=== PATIENT | female | born 1940 | race Caucasian/White ===

== ENCOUNTER 2019-02-14 06:58 | Emergency (ER) | payer MEDICARE, BC ==
[2019-02-14] MEDS ORDERED: KETOROLAC 60 MG/2 ML VIAL IM STA (07:34)
--- NOTE | 2019-02-14 07:38 | ED Physician Documentation ---
PD HPI Fall - Stated complaint Stated Complaint: LT LOWER BACK PX - Chief complaint Chief Complaint: Back Pain - History obtained from History obtained from: Patient, Family - History of Present Illness Mechanism of injury: Lost balance Fall distance: Standing position, Less than 5ft, Other (from coutner height) Where injury occurred: Home Timing - onset: How many days ago (2) Injury(ies) location: Back Quality of pain: Pain Associated symptoms: No: LOC, AMS, Amnesia, Seizures, Ear drainage, Nasal drainage, Neck pain Symptoms improve with: Rest, Ice, Meds Worsens with: Movement, Palpation Contributing factors: No: Anticoagulated, Intoxicated Similar symptoms before: Has not had sx before Recently seen: Not recently seen - Additional information Additional information: Previously healthy 78-year-old female with history of hypertension was on a countertop 2 days ago when she fell onto her back. She has pain on the left side of her back below her scapula to direct palpation and any movement or breathing. She states this is now limiting what she can do. She is having a hard time standing up sitting down and moving around. If she is very still she can be comfortable. She has tried some muscle relaxant and some ibuprofen. She had some mixed improvement with that. Review of Systems Constitutional: denies: Fever Eyes: denies: Decreased vision Nose: denies: Congestion Throat: denies: Sore throat Cardiac: reports: Chest pain / pressure. denies: Palpitations, Pedal edema, Calf pain Respiratory: denies: Dyspnea, Cough GI: denies: Abdominal Pain, Nausea, Vomiting : denies: Dysuria, Frequency Skin: denies: Rash Musculoskeletal: reports: Back pain. denies: Neck pain, Extremity pain Neurologic: denies: Generalized weakness, Focal weakness PD PAST MEDICAL HISTORY - Present Medications Home Medications: Ambulatory Orders Medication Instructions Recorded Confirmed Hydrocodone/Acetaminophen 1 - 2 each PO Q6H PRN #30 tablet 02/14/19 [Hydrocodon-Acetaminophen 5-325] - Allergies Allergies/Adverse Reactions: Allergies Allergy/AdvReac Type Severity Reaction Status Date / Time No Known Drug Allergies Allergy Verified 02/14/19 07:12 PD ED PE NORMAL - Vitals Vital signs reviewed: Yes (hypertensive mild ) - General General: Alert and oriented X 3, Well developed/nourished, Other (moves slowly and breaths shallow ) - HEENT HEENT: Atraumatic, PERRL, EOMI - Neck Neck: Supple, no meningeal sign, No bony TTP - Cardiac Cardiac: RRR, No murmur - Respiratory Respiratory: No respiratory distress, Clear bilaterally, Other (tender specifically to the ribs posteriorly over the 8th and 9th ribs to the mid scaplular line. ) - Abdomen Abdomen: Soft, Non tender - Back Back: No CVA TTP, No spinal TTP - Derm Derm: Normal color, Warm and dry, No rash - Extremities Extremities: No deformity, No edema, No calf tenderness / cord - Neuro Neuro: Alert and oriented X 3, disability hearing officer 2-12 intact, No motor deficit, No sensory deficit, Normal speech Eye Opening: Spontaneous Motor: Obeys Commands Verbal: Oriented GCS Score: 15 - Psych Psych: Normal mood, Normal affect Results - Vitals Vitals: Vital Signs - 24 hr 02/14/19 02/14/19 02/14/19 07:02 09:41 11:58 Temperature 37.2 C Heart Rate 71 51 L 57 L Respiratory 18 16 18 Rate Blood Pressure 143/84 H 153/96 H 144/91 H O2 Saturation 97 98 99 Oxygen O2 Source Room air - Labs Labs: Laboratory Tests 02/14/19 02/14/19 02/14/19 09:38 09:38 09:38 WBC 6.6 RBC 4.02 L Hgb 12.9 Hct 38.4 MCV 95.6 MCH 32.1 H MCHC 33.5 RDW 12.8 Plt Count 181 MPV 7.7 L Neut # (Auto) 4.4 Lymph # (Auto) 1.7 [place] # (Auto) 0.5 Eos # (Auto) 0.1 Baso # (Auto) 0.0 Absolute Nucleated RBC 0.00 Nucleated RBC % 0.0 Sodium 139 Potassium 3.9 Chloride 103 Carbon Dioxide 26 Anion Gap 10.0 BUN 13 Creatinine 0.8 Estimated GFR (MDRD) 70 L Glucose 104 H Calcium 9.5 Total Bilirubin 1.0 AST 22 ALT 22 Alkaline Phosphatase 42 Troponin I < 0.04 Total Protein 7.2 Albumin 4.3 Globulin 2.9 Albumin/Globulin Ratio 1.5 Lipase 24 - Rads (name of study) CT abd/pel with Radiology: Prelim report reviewed (Impression: No visceral organ injury. No free fluid in the abdomen.), EMP read indepedently, See rad report CT chest with Radiology: Prelim report reviewed (Impression: left fifth through ninth rib fracture. Possible trace left pneumothorax. Left basilar atelectasis. Small left effusion.), EMP read indepedently, See rad report ribs with PA chest Radiology: Prelim report reviewed (Impression: 1. Acute minimally displaced fractures of the posterior lateral left fifth and sixth ribs. Acute nondisplaced fractures of the posterior lateral left seventh through ninth ribs 2. no pneumothorax lungs are clear.), EMP read indepedently, See rad report Procedures - Bedside sono Bedside sono by EMP: With use of bedside ultrasound the left kidney is imaged there is a thin rim of fluid superiorly there is no obvious deformity to the spleen which is otherwise homogeneous. PD MEDICAL DECISION MAKING - ED course Complexity details: reviewed results, re-evaluated patient, considered differential, d/w patient, d/w family, d/w data integrity consultant ([place]get[place]: 2 days out from fractures does not require "automatic" admit to CCU. Recommends pain control and imaging of spleen with FAST) ED course: 78-year-old female who is fallen from a counter height onto her back is fractured 5 ribs. She comes to the emergency department 2 and half days after the fall and she is having a hard time getting in and out of bed she is not able to lay flat she has not had adequate relief of the pain with ibuprofen and Aleve. She does not have obvious hemopneumothorax on her plain film of the chest. Dr. Baumann is consulted in the case and recommends a FAST exam for examination of the spleen and on this exam there is a trace free fluid above the left kidney and a CT abdomen pelvis and chest are obtained for further evaluation. There is no abnormality of the spleen. The imaging studies show the extent of the injury including a small effusion some subcutaneous air scant amount and I am not able to see the possible pneumothorax that is discussed. The patient has improvement with use of oral narcotic in the form of hydrocodone and I discussed with the patient the need for regular deep breathing and for adequate pain control. She will reduce her level of activity she is able to get in and out of bed at this time without assistance. I did discuss with the patient admission to the hospital and she would prefer not to have to come into the hospital. With shared decision making she will attempt treatment as an outpatient. Departure - Departure Disposition: Home, Self Care Clinical Impression: Ribs, multiple fractures Instructions: ED Fx Rib Follow-Up: CAREN DRAPER MD [Primary Care Provider] - Prescriptions: Hydrocodone/Acetaminophen [Hydrocodon-Acetaminophen 5-325] 1 - 2 each PO Q6H PRN #30 tablet PRN Reason: pain Discharge Date/Time: 02/14/19 12:30
--- NOTE | 2019-02-14 08:02 | XRAY Report ---
Reason: fall left posterior lower chest wall pain Procedure Date: 02/14/2019 Accession Number: [id number] / [id number] Procedure: XR - Ribs w/PA Chest LT CPT Code: FULL RESULT: EXAM: LEFT RIB RADIOGRAPHY EXAM DATE: 02/14/2019 07:52 AM. CLINICAL HISTORY: Fall left posterior lower chest wall pain. COMPARISON: None. TECHNIQUE: 1 view of the chest and 2 views of the ribs. FINDINGS: Bones: There are acute minimally displaced fractures of the posterior lateral left fifth and sixth ribs. There are acute nondisplaced fractures of the posterior lateral left seventh (probable), eighth, ninth ribs. A marker is placed over the lateral left ninth rib. Lungs: No focal opacities. No pneumothorax. No pleural effusions. Mediastinum: Heart and mediastinal contours are unremarkable. Other: None. IMPRESSION: 1. Acute minimally displaced fractures of the posterior lateral left fifth and sixth ribs. Acute nondisplaced fractures of the posterolateral left seventh through ninth ribs. 2. No pneumothorax. Lungs are clear. RADIA
[2019-02-14] MEDS ORDERED: HYDROcod/ACETAM 5/325 MG TABLET PO STA (08:41)
[2019-02-14] MEDS ORDERED: IOVERSOL 320 100 ML VIAL IVP ONE ×2 (09:09→10:23)
[2019-02-14 09:48] LABS: BASOPHILS % (AUTO) 0.5 %; EOSINOPHILS # (AUTO) 0.1 10^3/uL (0.0-0.7); EOSINOPHILS % (AUTO) 1.2 %; HGB - HEMOGLOBIN 12.9 g/dL (12.0-16.0); LYMPHOCYTES # (AUTO) 1.7 10^3/uL (1.5-3.5); LYMPHOCYTES % (AUTO) 25.1 %; MEAN CORPUSCULAR HEMOGLOBIN 32.1 pg (27.0-31.0); MEAN CORPUSCULAR HGB CONC 33.5 g/dL (32.0-36.0); MEAN CORPUSCULAR VOLUME 95.6 fL (81.0-99.0); MEAN PLATELET VOLUME 7.7 fL (7.9-10.8); MONOCYTES # (AUTO) 0.5 10^3/uL (0.0-1.0); MONOCYTES % (AUTO) 7.7 %; NEUTROPHILS # (AUTO) 4.4 10^3/uL (1.5-6.6); NEUTROPHILS % (AUTO) 65.5 %; PLT - PLATELET COUNT 181 10^3/uL (130-450); RED BLOOD COUNT 4.02 10^6/uL (4.20-5.40); RED CELL DISTRIBUTION WIDTH 12.8 % (12.0-15.0); WHITE BLOOD COUNT 6.6 x10^3/uL (4.8-10.8)
[2019-02-14 09:59] LABS: ALBUMIN 4.3 g/dL (3.2-5.5); ALBUMIN/GLOBULIN RATIO 1.5 (1.0-2.2); CALCIUM 9.5 mg/dL (8.5-10.3); CREATININE 0.8 mg/dL (0.4-1.0); TOTAL PROTEIN 7.2 g/dL (6.7-8.2)
--- NOTE | 2019-02-14 11:08 | CT Report ---
Reason: fall multiple rib fx ? rim of fluid on spleen Procedure Date: 02/14/2019 Accession Number: [id number] / [id number] Procedure: CT - Abdomen/Pelvis W CPT Code: FULL RESULT: EXAM: CT ABDOMEN AND PELVIS EXAM DATE: 02/14/2019 10:26 AM. CLINICAL HISTORY: Fall multiple rib fx ? rim of fluid on spleen. COMPARISONS: None. TECHNIQUE: Routine helical CT imaging was performed through the abdomen and pelvis. IV contrast: OPTI 320 80 ML. Enteric contrast: No. Reconstructions: Coronal and sagittal. In accordance with CT protocol optimization, one or more of the following dose reduction techniques were utilized for this exam: automated exposure control, adjustment of mA and/or KV based on patient size, or use of iterative reconstructive technique. FINDINGS: Liver: Fatty infiltrated Gallbladder/Bile Ducts: Unremarkable. Spleen: Normal. Pancreas: Normal. Adrenal Glands: Normal. Kidneys: Right kidney unremarkable. Left kidney subcentimeter density inferior pole too small to characterize. Peritoneal Cavity/Bowel: Normal. No free fluid, free air or adenopathy. No masses or acute inflammatory process. Pelvic Organs: Normal. The bladder and visualized pelvic organs are within normal limits. Vasculature: No aneurysms or other significant abnormality. Bones: DJD spine. Other: None. IMPRESSION: No visceral organ injury. No free fluid in the abdomen. RADIA
--- NOTE | 2019-02-14 11:09 | CT Report ---
Reason: fall multiple rib fx Procedure Date: 02/14/2019 Accession Number: [id number] / [id number] Procedure: CT - CHEST W CPT Code: FULL RESULT: EXAM: CT CHEST EXAM DATE: 02/14/2019 10:26 AM. CLINICAL HISTORY: Fall multiple rib fx. COMPARISONS: None. TECHNIQUE: Routine helical CT imaging was performed through the chest. IV contrast: None. Reconstructions: Coronal and sagittal. In accordance with CT protocol optimization, one or more of the following dose reduction techniques were utilized for this exam: automated exposure control, adjustment of mA and/or KV based on patient size, or use of iterative reconstructive technique. FINDINGS: Lungs/Pleura: Minimal right basilar atelectasis. Left basilar atelectasis. Small left effusion. Possible trace left pneumothorax Pulmonary vasculature is normal. No pericardial effusion. Mediastinum: Normal. No adenopathy or masses. The heart and great vessels are normal. Bones: Left fifth, sixth, seventh, eighth and ninth rib fracture. Mild wedging mid thoracic vertebral bodies. Other: Subcentimeter densities in the thyroid gland bilaterally Subcutaneous emphysema left chest IMPRESSION: 1. Left fifth through ninth rib fracture. 2. Possible trace left pneumothorax. Left basilar atelectasis. Small left effusion. RADIA
[2019-02-14 11:59] VITALS: BP 144/91
== END 2019-02-14 12:30 | disposition home or self-care (01) ==
LOC: ED 06:58
DX: S22.42XA Multiple fractures of ribs, left side, initial encounter for closed fracture (principal); W17.89XA Other fall from one level to another, initial encounter; Y92.009 Unspecified place in unspecified non-institutional (private) residence as the place of occurrence of the external cause
CPT/HCPCS: 36415; 71101; 71260; 74177; 80053; 83690; 84484; 85025; 96372; 99283; 99284; A9270; Q9967

== ENCOUNTER 2019-02-17 04:46 | Outpatient (CLI) | payer MEDICARE, BC | END 2019-02-17 04:47 | disposition EMS.NT | LOC: EMS 04:46 | PROVIDERS: ATTEND Surgery | DX: R07.81 Pleurodynia (principal) ==

== ENCOUNTER 2019-02-17 05:53 | Emergency (ER) | payer MEDICARE, BC ==
--- NOTE | 2019-02-17 06:16 | ED Physician Documentation ---
History of Present Illness - Stated complaint Stated Complaint: RIB PX - Chief complaint Chief Complaint: General - History obtained from History obtained from: Patient - Additonal information Additional information: Patient is a 78-year-old female presenting with persistent left-sided rib pain and muscle spasm. Patient was originally injured and seen in the ED several days ago on 02/14/2019. At that time it was determined that she had left-sided fifth through ninth rib fractures and was sent home with pain medications, as well as an incentive spirometer. Patient reports that she is still experiencing pain but mostly is concerned about significant muscle spasm. No new injuries or falls. Patient denies new productive cough, fever, or other concerns. Patient is to follow-up with her primary care physician later this week. No other improving or worsening factors noted. Review of Systems Cardiac: reports: Other (rib pain on left) Respiratory: denies: Dyspnea, Cough PD PAST MEDICAL HISTORY - Past Medical History Cardiovascular: Hypertension, High cholesterol - Present Medications Home Medications: Ambulatory Orders Medication Instructions Recorded Confirmed Hydrocodone/Acetaminophen 1 - 2 each PO Q6H PRN #30 tablet 02/14/19 [Hydrocodon-Acetaminophen 5-325] diazePAM [Valium] 2 mg PO TID PRN #15 tablet 02/17/19 - Allergies Allergies/Adverse Reactions: Allergies Allergy/AdvReac Type Severity Reaction Status Date / Time No Known Drug Allergies Allergy Verified 02/14/19 07:12 - Social History Does the pt smoke?: No Smoking Status: Never smoker Does the pt drink ETOH?: Yes Does the pt have substance abuse?: No - POLST Patient has POLST: No PD ED PE NORMAL - Vitals Vital signs reviewed: Yes - General General: Alert and oriented X 3, No acute distress, Well developed/nourished - HEENT HEENT: Atraumatic - Cardiac Cardiac: RRR, No murmur, Other (Moderate rib pain to left mid axillary and left lower posterior ribs) - Respiratory Respiratory: No respiratory distress, Clear bilaterally - Derm Derm: Normal color, Warm and dry - Extremities Extremities: No deformity, No tenderness to palpate - Neuro Neuro: Alert and oriented X 3, No motor deficit, No sensory deficit - Psych Psych: Normal mood, Normal affect Results - Vitals Vitals: Vital Signs - 24 hr 02/17/19 06:00 Temperature 36.7 C Heart Rate 60 Respiratory 20 Rate Blood Pressure 143/85 H O2 Saturation 97 Oxygen O2 Source Room air PD MEDICAL DECISION MAKING - ED course Complexity details: reviewed old records, considered differential, d/w patient, d/w family ED course: Patient has known injuries of left-sided fifth through ninth rib fractures from fall several days ago. No new injuries or trauma. Do not feel patient requires new imaging or invasive testing at this time. Patient still has pain medications available to her at home and has primary care physician follow-up later this week during which she can obtain refills. However, she is complained today mostly of muscle spasm and feel that providing a muscle relaxant will be an appropriate addition to her pain regimen. Had lengthy discussions with patient regarding use of medications, accommodation of medications with narcotics, other supportive cares, and return precautions. Also emphasized need for primary care follow-up as scheduled. Patient and voiced understanding and are comfortable with discharge plan. Departure - Departure Disposition: 01 Home, Self Care Clinical Impression: Ribs, multiple fractures Qualifiers: Encounter type: subsequent encounter Fracture type: closed Laterality: left Fr acture healing: with routine healing Qualified Code(s): S22.42XD - Multiple fractures of ribs, left side, subsequent encounter for fracture with routine healing Condition: Good Instructions: ED Fx Rib Follow-Up: CAREN DRAPER MD [Primary Care Provider] - Within 3 Days Prescriptions: diazePAM [Valium] 2 mg PO TID PRN #15 tablet PRN Reason: Spasms Comments: May continue use of [place] at home as previously instructed. Recommend use of stool softener or laxative if taking this regularly to avoid constipation. Please use Valium as prescribed for relief of muscle spasm. Please do not combine medications with alcohol or driving. Also recommend stretching, massage, and heat application. Please follow-up with primary care physician in next 2 to 3 days and return to ED sooner if experience worsening symptoms or other concerns.
[2019-02-17] MEDS ORDERED: diazePAM 5 MG TABLET PO STA ×2 (06:26→06:34)
--- NOTE | 2019-02-17 07:10 | ED Physician Documentation ---
History of Present Illness - Stated complaint Stated Complaint: RIB PX - Chief complaint Chief Complaint: General - Additonal information Additional information: 78 y/o female returns to the ED with severe spasms of pain at 0300 on day #5 fr om rib injury. 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 - Present Medications Home Medications: Ambulatory Orders Medication Instructions Recorded Confirmed Hydrocodone/Acetaminophen 1 - 2 each PO Q6H PRN #30 tablet 02/14/19 [Hydrocodon-Acetaminophen 5-325] Hydrocodone/Acetaminophen 1 - 2 each PO Q6H PRN #14 tablet 02/17/19 [Hydrocodon-Acetaminophen 5-325] Ondansetron Odt [Zofran] 4 mg TL Q6H PRN #10 tablet 02/17/19 diazePAM [Valium] 2 mg PO TID PRN #15 tablet 02/17/19 - Allergies Allergies/Adverse Reactions: Allergies Allergy/AdvReac Type Severity Reaction Status Date / Time No Known Drug Allergies Allergy Verified 02/14/19 07:12 - Social History Does the pt smoke?: No Smoking Status: Never smoker Does the pt drink ETOH?: Yes Does the pt have substance abuse?: No - POLST Patient has POLST: No PD ED PE NORMAL - Vitals Vital signs reviewed: Yes (hypertensive ) - General General: Alert and oriented X 3, No acute distress, Well developed/nourished - HEENT HEENT: Atraumatic, PERRL, EOMI - Respiratory Respiratory: No respiratory distress, Clear bilaterally, Other (diminished breath sounds in left base. No rhonchi or wheezing ) - Derm Derm: Normal color, Warm and dry, No rash - Extremities Extremities: No deformity, No edema - Neuro Neuro: Alert and oriented X 3, upstairs maid 2-12 intact, No motor deficit, No sensory deficit, Normal speech Eye Opening: Spontaneous Motor: Obeys Commands Verbal: Oriented GCS Score: 15 - Psych Psych: Normal mood, Normal affect Results - Vitals Vitals: Vital Signs - 24 hr 02/17/19 02/17/19 06:00 07:17 Temperature 36.7 C 36.6 C Heart Rate 60 62 Respiratory 20 16 Rate Blood Pressure 143/85 H 136/76 H O2 Saturation 97 99 Oxygen O2 Source Room air PD MEDICAL DECISION MAKING - ED course Complexity details: considered differential, d/w patient, d/w family ED course: 78y/o female with broken 5 ribs is on Day #5 with increased pain and spasms. She has about 10 pain pills left, she lives in [place] and has an appointment to see her primary at the end of the week. She is having some nausea with the pain medication. She is given additional scripts for zofran and hydrocodone. And she is administered PO decadron Departure - Departure Disposition: 01 Home, Self Care Clinical Impression: Ribs, multiple fractures Qualifiers: Encounter type: subsequent encounter Fracture type: closed Laterality: left Fracture healing: with routine healing Qualified Code(s): S22.42XD - Multiple fractures of ribs, left side, subsequent encounter for fracture with routine healing Condition: Good Instructions: ED Fx Rib Follow-Up: CAREN DRAPER MD [Primary Care Provider] - Within 3 Days Prescriptions: diazePAM [Valium] 2 mg PO TID PRN #15 tablet PRN Reason: Spasms Hydrocodone/Acetaminophen [Hydrocodon-Acetaminophen 5-325] 1 - 2 each PO Q6H PRN #14 tablet PRN Reason: pain Ondansetron Odt [Zofran] 4 mg TL Q6H PRN #10 tablet PRN Reason: Nausea / Vomiting Comments: May continue use of [place] at home as previously instructed. Recommend use of stool softener or laxative if taking this regularly to avoid constipation. Please use Valium as prescribed for relief of muscle spasm. Please do not combine medications with alcohol or driving. Also recommend stretching, massage, and heat application. Please follow-up with primary care physician in next 2 to 3 days and return to ED sooner if experience worsening symptoms or other concerns.
[2019-02-17 07:18] VITALS: BP 136/76
[2019-02-17] MEDS ORDERED: CHERRY SYRUP 10 ML UDC PO ONE (07:55)
[2019-02-17] MEDS ORDERED: DEXAMETHASONE 10 MG/ML VIAL PO STA (07:55)
== END 2019-02-17 08:23 | disposition home or self-care (01) ==
LOC: ED 05:53
DX: M62.838 Other muscle spasm (principal); S22.42XA Multiple fractures of ribs, left side, initial encounter for closed fracture; W19.XXXA Unspecified fall, initial encounter; I10 Essential (primary) hypertension
CPT/HCPCS: 99283; A9270

== ENCOUNTER 2021-03-08 08:00 | Outpatient (CLI) | payer MEDICARE, BC | END 2021-03-08 23:59 | disposition home or self-care (01) | LOC: LAB.S 08:00 | PROVIDERS: ATTEND Physician Assistant | DX: N39.0 Urinary tract infection, site not specified (principal) | CPT/HCPCS: 87086; 87181 ==

== ENCOUNTER 2021-04-30 17:27 | Emergency (ER) | payer MEDICARE, OTHER ==
--- NOTE | 2021-04-30 18:41 | ED Physician Documentation ---
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 - Present Medications Home Medications: Ambulatory Orders Medication Instructions Recorded Confirmed HYDROcod/ACETAM 5/325 [[place] 5/325] 1 ea PO Q6H PRN #15 tablet 04/30/21 Pravastatin [Pravachol] 20 mg PO HS 04/30/21 04/30/21 Spironolactone [Aldactone] 25 mg PO DAILY 04/30/21 04/30/21 - Allergies Allergies/Adverse Reactions: Allergies Allergy/AdvReac Type Severity Reaction Status Date / Time No Known Drug Allergies Allergy Verified 02/14/19 07:12 - Social History Does the pt smoke?: No Smoking Status: Never smoker Does the pt drink ETOH?: Yes Does the pt have substance abuse?: No - POLST Patient has POLST: No PD ED PE NORMAL - Vitals Vital signs reviewed: Yes - General General: Alert and oriented X 3, Well developed/nourished, Other (appears uncomfortable and is guarding ROM of the left wrist. Alert and conversant. ) - HEENT HEENT: Atraumatic - Derm Derm: Normal color, Warm and dry - Extremities Extremities: Other (left distal forearm with swelling mainly dorsal radial side. No obvious angulation. Good pulses at wrist, cap refill and sesnation distally. ) - Neuro Neuro: Alert and oriented X 3, No motor deficit, No sensory deficit, Normal speech Results - Vitals Vitals: Vital Signs - 24 hr 04/30/21 04/30/21 18:04 19:34 Temperature 36.7 C 36.7 C Heart Rate 78 78 Respiratory 18 16 Rate Blood Pressure 128/69 135/84 H O2 Saturation 100 98 Oxygen O2 Source Room air - Rads (name of study) left wrist Radiology: Prelim report reviewed, EMP read contemporaneously (colles fracture comminuted intraarticular with mild dorsal angulation. ), See rad report Procedures - Splint (location) left wrist Splint applied by: Tech Type of splint: Fiberglass, Sugar tong Other: Patient tolerated well, No complications, Neurovascular intact, Sling provided PD MEDICAL DECISION MAKING - ED course Complexity details: reviewed results, re-evaluated patient, considered differential (she states their PMD is a group practice on [facility] so will follow up with Ortho referral from that group. Given disc of images. [facility] local in case. ), d/w patient Departure - Departure Disposition: 01 Home, Self Care Clinical Impression: Accidental fall Qualifiers: Encounter type: initial encounter Qualified Code(s): W19.XXXA - Unspecified fall, initial encounter Colles' fracture of left radius Qualifiers: Encounter type: initial encounter Fracture type: closed Qualified Code(s): S52.532A - Colles' fracture of left radius, initial encounter for closed fracture Condition: Stable Record reviewed to determine appropriate education?: Yes Instructions: ED Fx Colles Wrist No Redu Requ Follow-Up: Roger Gore MD [Provider Admit Priv/Credential] - Prescriptions: HYDROcod/ACETAM 5/325 [[place] 5/325] 1 ea PO Q6H PRN #15 tablet PRN Reason: Pain Comments: Keep the splint on and use the sling to help elevate and rest the wrist. Elevate and ice it often to reduce swelling. Use anti-inflammatory such as ibuprofen or naproxen 2-3 times daily. To that add Tylenol every 4 hours if needed for pain. Alternatively you could use hydrocodone if needed for worse pain in the short-term. This typically is needed mainly in the first few days after the injury. Follow-up with orthopedics. Call on Sunday for an appointment for the end of the week or early next week. This is the best timeframe for the swelling to go down and to be reevaluated for further treatment. Discharge Date/Time: 04/30/21 19:43
--- NOTE | 2021-04-30 18:55 | XRAY Report ---
PROCEDURE: Wrist 3 View LT INDICATIONS: fall with wrist injury TECHNIQUE: 3 views of the wrist were acquired. COMPARISON: None FINDINGS: Bones: Comminuted fracture of the distal radius is noted which extends into the radiocarpal joint. Di splaced fracture involving the ulnar styloid process. Soft tissues: TFCC chondrocalcinosis. IMPRESSION: 1. Comminuted, intra-articular distal radius fracture. 2. Displaced ulnar styloid process fracture. Reviewed by: Jeanne Schulz MD, PhD on 04/30/2021 6:54 PM PDT Approved by: Jeanne Schulz MD, PhD on 04/30/2021 6:54 PM PDT Station ID: [id number]
[2021-04-30] MEDS ORDERED: HYDROcod/ACETAM 5/325 MG TABLET PO STA (19:06)
[2021-04-30] MEDS ORDERED: IBUPROFEN 600 MG TABLET PO STA (19:06)
[2021-04-30 19:42] VITALS: BP 135/84
== END 2021-04-30 19:43 | disposition home or self-care (01) ==
LOC: ED 17:27
DX: S52.532A Colles' fracture of left radius, initial encounter for closed fracture (principal); W01.198A Fall on same level from slipping, tripping and stumbling with subsequent striking against other object, initial encounter; Y92.410 Unspecified street and highway as the place of occurrence of the external cause; I10 Essential (primary) hypertension
CPT/HCPCS: 29125; 73110; 99283; 99284; A9270

== ENCOUNTER 2021-06-13 08:00 | Outpatient (CLI) | payer MEDICARE, OTHER | END 2021-06-13 23:59 | disposition home or self-care (01) | LOC: LAB.S 08:00 | PROVIDERS: ATTEND Emergency Medicine | DX: M79.661 Pain in right lower leg (principal) | CPT/HCPCS: 36415; 85379 ==

== ENCOUNTER 2022-07-14 01:39 | Emergency (ER) | payer MEDICARE, OTHER ==
--- NOTE | 2022-07-14 01:54 | ED Physician Documentation ---
PD HPI FEMALE - Stated complaint Stated Complaint: unable to void - Chief complaint Chief Complaint: Abd Pain - History obtained from History obtained from: Patient - History of Present Illness Timing - onset: Today Timing - duration: Hours Timing - details: Abrupt onset (She had a procedure/surgery this morning at [facility] to help with urinary incontinence. Had urinary retention after with catheter in recovery and sent home with cath for self cathing if needed. Unable to urinate since and was unable to get catheter inserted herself at [facility].) Associated symptoms: Other (urinary retention today post procedure.). No: Back pain, Hematuria Recently seen: Surgery (Bulkamid procedure to help with stress incontinence (injection of material periurethral).) Review of Systems Constitutional: denies: Fever, Chills Cardiac: denies: Chest pain / pressure, Palpitations Respiratory: denies: Dyspnea, Cough GI: denies: Nausea, Vomiting : reports: Unable to Void. 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 - Present Medications Home Medications: Ambulatory Orders Medication Instructions Recorded Confirmed HYDROcod/ACETAM 5/325 [Tyro 5/325] 1 ea PO Q6H PRN #15 tablet 04/30/21 Pravastatin [Pravachol] 20 mg PO HS 04/30/21 04/30/21 Spironolactone [Aldactone] 25 mg PO DAILY 04/30/21 04/30/21 - Allergies Allergies/Adverse Reactions: Allergies Allergy/AdvReac Type Severity Reaction Status Date / Time No Known Drug Allergies Allergy Verified 07/14/22 01:50 - Social History Does the pt smoke?: No Smoking Status: Never smoker Does the pt drink ETOH?: Yes Does the pt have substance abuse?: No - POLST Patient has POLST: No PD ED PE NORMAL - Vitals Vital signs reviewed: Yes - General General: Alert and oriented X 3, Well developed/nourished, Other (appears uncomfortable due to bladder fulness. ) - Abdomen Abdomen: Soft, Other (suprapubic fullness/tender. ) - Female Female : Deferred - Derm Derm: Normal color, Warm and dry - Neuro Neuro: Alert and oriented X 3, No motor deficit, Normal speech Results - Vitals Vitals: Vital Signs - 24 hr 07/14/22 01:46 Temperature 36.4 C L Heart Rate 83 Respiratory 18 Rate Blood Pressure 180/93 H O2 Saturation 96 Oxygen O2 Source Room air PD MEDICAL DECISION MAKING - ED course Complexity details: re-evaluated patient (inproved after aguero placed by nursing. Had 1100 ml output. ), considered differential, d/w patient Departure - Departure Disposition: 01 Home, Self Care Clinical Impression: Postprocedural urinary retention Condition: Stable Record reviewed to determine appropriate education?: Yes Instructions: ED Catheter Care Aguero, ED Retention Urinary Female Follow-Up: Jose Tapia DO [Primary Care Provider] - Comments: Leave the catheter in place through the night and into tomorrow. Contact your surgeon office tomorrow to discuss how long to leave it in before attempting removal. I would suspect a couple of days but defer judgment to them. Return if problems with the Aguero catheter.
[2022-07-14 03:04] VITALS: BP 142/73
--- OUTSIDE RECORDS SUMMARY | 2022-07-14 06:08 | EXTERNAL MEDICAL SUMMARY RPT | Continuity of Care Document ---
:1940 Author Organization [facility] [address] [place] [address] Phone Care Team Providers Name Role Phone Unavailable Unavailable Unavailable Ab Ibarra, Sly Unavailable Unavailable Allergies No information. Encounters No information. Functional Status No information. Immunizations No information. Medications date description facility [id number] pravastatin [facility] [place] [id number]+0000 estradiol [facility] [place] [id number]+0000 amoxicillin-pot clavulanate [facility] [place] [phone]+0000 amoxicillin-pot clavulanate [facility] [place] [phone]+0000 spironolactone [facility] [place] [phone]+0000 estradiol [facility] [place] [phone]+0000 pravastatin [facility] [place] [phone]+0000 spironolactone [facility] [place] [phone]+0000 estradiol [facility] [place] [phone]+0000 spironolactone [facility] [place] [phone]+0000 pravastatin [facility] [place] [phone]+0000 spironolactone [facility] [place] [phone]+0000 estradiol [facility] [place] [phone]+0000 amoxicillin-pot clavulanate [facility] [place] [phone]+0000 amoxicillin-pot clavulanate [facility] [place] [phone]+0000 pravastatin [facility] [place] Problems No information. Procedures date description facility +0000 Visit Code Hold [facility] [place] Results/Labs No information. Social History date description facility +0000 Never smoker [facility] [place] Vital Signs date measurement value units +0000 BMI BMI 32.21 kg/m2 +0000 BP_diastolic BP_diastolic 91 mmHg +0000 BP_systolic BP_systolic 187 mmHg +0000 heart_rate heart_rate 61 /min +0000 height_metric height_metric 162.56 cm +0000 height_standard height_standard 64 in +0000 respiration_rate respiration_rate 15 /min +0000 temperature_metric temperature_metric 36.5 C +0000 temperature_standard temperature_standard 9 7.7 F +0000 weight_metric weight_metric 84.82 kg +0000 weight_standard weight_standard 187 lb
== END 2022-07-14 03:04 | disposition home or self-care (01) ==
LOC: ED 01:39
DX: R33.8 Other retention of urine (principal); Z98.890 Other specified postprocedural states; I10 Essential (primary) hypertension
CPT/HCPCS: 51702; 99283